=== PATIENT | male | born 1945 | race Caucasian/White ===

== ENCOUNTER 2017-01-10 14:55 | Inpatient (IN) | payer OTHER, MEDICARE ==
--- NOTE | 2016-12-26 11:54 | MH ---
cc: TOYA MIRELES DATE OF ADMISSION: 01/11/2017 ADMITTING DIAGNOSIS: Osteoarthritis of the right knee, patellofemoral disorder right knee and pain of the right knee. HISTORY OF PRESENT ILLNESS The patient is a 71-year-old white male who has experienced pain of his right knee of at least 5 years duration. He had originally noted the onset of a sensation of instability about the knee that was associated with frequent falls. At that time he was evaluated at a [place] facility where he reports he was diagnosed as having an arthritic condition with bone on bone associated with the findings. He was prescribed an offloading brace that he has continued to utilize over the following years that has proven to be beneficial. Without the brace he has residual sensation of instability but as long as he wears the brace he has eliminated the recurrence of any additional falls. He was evaluated by the undersigned physician in October of this past year and at that time he noted a residual sensation of instability with weightbearing activities whenever the brace was not being utilized, he had some degree of pain associated for which he had not required the use of any medication. His x-ray studies at that time revealed obvious degenerative changes about the medial compartment with [id number] apposition and secondary involvement of the patellofemoral articulation. Findings and treatment options were reviewed with the patient, the pros and cons of continuing with conservative management versus operative intervention that would involve total knee arthroplasty were outlined in detail. Emphasis was made regarding the fact that the decision to proceed with surgery would be left entirely to the patient's discretion. The patient readily admitted that he felt his symptoms had progressed to a point in time where he was ready to consider such treatment. The involvement of surgery was outlined in detail for which the patient indicated his full understanding and expressed his desire to proceed accordingly. In compliance with his wishes he is currently being admitted in order that the above be accomplished. PAST MEDICAL HISTORY/HOSPITALIZATIONS/SURGERIES Have included: 1. Cystoscopy for urinary blockage. 2. Left cataract excision. 3. Colonoscopy. MEDICAL ILLNESSES 1. Atrial fibrillation. 2. History of benign brain tumor. MEDICATIONS Current medications: 1. Amlodipine 10 mg daily. 2. Digoxin 0.125 mg daily. 3. Doxazosin 1 mg daily. 4. Finasteride 5 mg daily. 5. Fish oil daily. 6. Lisinopril 20 mg daily. 7. Lovastatin 40 mg daily. 8. Pradaxa 150 mg twice daily. 9. Vitamin D 5000 units daily. ALLERGIES The patient denies any known drug allergies. REVIEW OF SYSTEMS He does wear glasses. Denies headache, seizure or syncope. No sinus congestion or epistaxis. Auditory acuity intact. No tinnitus. No bleeding gums or dysphagia. Denies cough, shortness of breath, upper respiratory infection, pneumonia or tuberculosis. No angina. He is medically managed for hypertension and atrial fibrillation. Appetite is good. Bowel movements are regular. No hepatitis, gallbladder disease, ulcers or hemorrhoids. No urinary tract infection. No kidney stones. No prostate disease. No history of fractures. No psychiatric illness. His remaining review of systems is unremarkable and noncontributory. FAMILY HISTORY The patient reports he has no information in this regard being a foster child. He has been for 25 years. He has one daughter indicated to be in good health. SOCIAL HISTORY The patient completed a high school education. 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 He denies active use of tobacco for at least 8 years but had smoked cigars for approximately 45 years prior to that time. Ethanol consumption on a social basis. PHYSICAL EXAMINATION VITAL SIGNS: Height 5 feet 5 and 1/2 inches. Weight 212 pounds. GENERAL: An alert, oriented and responsive 71-year-old white male sitting quietly upon the examination table with no obvious distress. HEENT: Pupils are equally round and reactive to light. Extraocular movements are full. Sclerae clear. External nares clear. External auditory canals clear. Dental intact. Mucous membranes pink and moist. Pharynx clear. NECK: Supple. Active range of motion without appreciable pain. Carotid pulse palpable bilaterally. Trachea midline. Thyroid without enlargement. LUNGS: Clear to auscultation and percussion. No CVA tenderness. No discomfort throughout the dorsal lumbar spine. HEART: Regular rhythm. No murmur or gallop. ABDOMEN: Abdomen is soft, nontender. Bowel sounds present. RECTAL: Per primary care physician. EXTREMITIES: Right knee no swelling or effusion. Slight medial joint line tenderness. Apprehension and compression sign negative. Limited mobility in the extreme of flexion with mild discomfort at the extreme of motion. 1+ collateral ligamentous instability. Sindy test and drawer sign negative. Pivot shift and Amy sign positive for medial compartment pain. Straight-leg raising unremarkable at 80 degrees. Independent gait with minimal limp associated. NEUROLOGIC: Cranial nerves II-XII grossly intact. IMPRESSION Severe osteoarthritis of the right knee, patellofemoral disorder right knee, pain right knee. PLAN Right total knee arthroplasty. The nature of the planned surgical procedure, the potential complications and risks associated, the expectations of surgery and the consent form have been thoroughly reviewed with the patient in the presence of his daughter and son-in-law prior to admission to the hospital. The patient has indicated his full understanding regarding all of the above and given consent to proceed with treatment as outlined. Medical evaluation and clearance for surgery will be completed by his primary care physician Dr. Anurag Fox. MD MARTHA Mckeon/TLL /11:14 AM /11:28 AM
[~2017-01-10] VITALS: Ht 166.4 cm; Wt 98.3 kg
[~2017-01-10 14:55] MED LIST: 1-ME1LIQ PO; BUPIVACAINE HCL PF 0.25% 30 ML VIAL NB ONE; BUPIVACAINE HCL PF 0.5% 30 ML VIAL NB ONE; DABI150 PO; DIGO0.12 PO; GLUC250C5 PO; HCTZ/LISINOPRIL PO; LISI-593 PO; LOVA40TA PO; TAMS0.4C67 PO
[2017-01-11] MEDS: LACTATED RINGER'S 1000 ML IV SCH (07:00)
[2017-01-11] MEDS ORDERED: AMLO10TA2 PO (07:27)
[2017-01-11] MEDS ORDERED: PRAD150C PO (07:27)
[2017-01-11] MEDS ORDERED: LOVA40TA PO (07:27)
[2017-01-11] MEDS ORDERED: DIGO0.12 PO (07:27)
[2017-01-11] MEDS ORDERED: DOXA1TAB36 PO (07:27)
[2017-01-11] MEDS ORDERED: FINA5TAB2 PO (07:27)
[2017-01-11] MEDS ORDERED: LISI-515 PO (07:27)
[2017-01-11] MEDS ORDERED: VITA500030 CHEW (07:27)
[2017-01-11] MEDS ORDERED: OMEGCAP PO (07:27)
[2017-01-11] MEDS: POVIDONE IODINE 7.5% SCRUB 118 ML BOTTLE TOP SCH (07:30)
[2017-01-11] MEDS: CHLORHEXIDINE GLUCONATE 4% SOLN 120 ML BTL TOP SCH (07:30)
[2017-01-11 07:37] VITALS: BP 180/90; PULSE 69; RESP 18; TEMP 98.7; O2SAT 98
[2017-01-11] MEDS ORDERED: TRANEXAMIC ACID 1 GM PRIOR TO PROCEDURE IV SCH ×2 (07:45)
[2017-01-11] MEDS ORDERED: ceFAZolin 2 GM PREMIX 50 ML ONE (07:52)
[2017-01-11] MEDS ORDERED: SODIUM CHLORID 0.9% 500 ML IV SCH (08:00)
[2017-01-11] MEDS ORDERED: ceFAZolin 2 GM PREMIX 50 ML IV SCH (08:15)
[2017-01-11] MEDS ORDERED: INSULIN HUMAN REGULAR 1,000 UNITS/10 ML VIAL SQ PRN (08:15)
[2017-01-11] MEDS ORDERED: METOPROLOL TARTRATE 25 MG TAB PO PRN (08:15)
[2017-01-11] MEDS ORDERED: MIDAZOLAM HCL 5 MG/5 ML VIAL ONE (08:46)
[2017-01-11] MEDS ORDERED: GENTAMICIN SULFATE 80 MG/2 ML VIAL ONE (09:59)
[2017-01-11] MEDS ORDERED: DEXAMETHASONE SOD PHOS 4 MG/ML VIAL ONE (10:05)
[2017-01-11] MEDS ORDERED: FAMOTIDINE 20 MG/2 ML VIAL ONE (10:05)
[2017-01-11] MEDS ORDERED: ACETAMINOPHEN 1000 MG/100 ML VIAL IV ONE (10:28)
[2017-01-11] MEDS ORDERED: ePHEDrine/NS 50 MG/5 ML SYR IV ONE (11:10)
[2017-01-11] MEDS ORDERED: PROPOFOL 200 MG/20 ML AMP IV ONE (11:10)
[2017-01-11] MEDS ORDERED: ONDANSETRON HCL 4 MG/2 ML VIAL IV PUSH ONE (11:10)
[2017-01-11] MEDS ORDERED: NEOSTIGMINE 3 MG/3 ML SYR IV ONE (11:10)
[2017-01-11] MEDS ORDERED: TRANEXAMIC ACID 1 GM POST-OP IV SCH ×2 (12:00)
[2017-01-11] MEDS ORDERED: TRANEXAMIC ACID INJ 1,000 MG in SODIUM CHLORIDE 0.9% INJ 100 ML IV SCH (12:45)
[2017-01-11] MEDS ORDERED: MAGNESIUM HYDROXIDE SUSP 30 ML CUP PO SCH (12:45)
[2017-01-11] MEDS ORDERED: diphenhydrAMINE HCL 25 MG CAP PO PRN (12:45)
[2017-01-11] MEDS ORDERED: BISACODYL 10 MG SUPP PR PRN (12:45)
[2017-01-11] MEDS ORDERED: ZOLPIDEM TARTRATE 5 MG TAB PO PRN (12:45)
[2017-01-11] MEDS ORDERED: DOCUSATE SODIUM 100 MG CAP PO PRN (12:45)
[2017-01-11] MEDS ORDERED: SODIUM CHLORIDE 0.9% FLUSH 5 ML FLUSH IVF PRN (12:45)
[2017-01-11] MEDS ORDERED: NALOXONE HCL 0.4 MG/ML AMP IV PRN (12:45)
[2017-01-11] MEDS ORDERED: ACETAMINOPHEN/HYDROcodone 325 MG/5 MG TAB PO PRN (12:45)
[2017-01-11] MEDS ORDERED: MORPHINE SULFATE 30 MG/30 ML PCA IV SCH (12:45)
[2017-01-11] MEDS ORDERED: Post-op Orders (for Pharmacy) MISC XX ONE (12:45)
[2017-01-11] MEDS ORDERED: MISCELLANEOUS PHARMACY INFORMATION XX ONE (12:45)
[2017-01-11] MEDS ORDERED: ACETAMINOPHEN 325 MG TAB PO PRN (12:45)
[2017-01-11] MEDS ORDERED: ONDANSETRON HCL 4 MG/2 ML VIAL IVP PRN (12:45)
[2017-01-11] MEDS ORDERED: PROMETHAZINE INJ 25 MG/ML VIAL IM PRN (12:45)
[2017-01-11] MEDS ORDERED: *morphine SULFATE 8 MG/ML PERIprocedure ONLY ONE (12:53)
[2017-01-11] MEDS ORDERED: DO NOT ADM ANY ANTICOAGULANT DRUGS XX PRN (13:00)
[2017-01-11] MEDS ORDERED: fentaNYL CITRATE 250 MCG/5 ML AMP ONE (13:10)
[2017-01-11] MEDS: DEXT 5%-NACL 0.45% 1000 ML INJ 1,000 ML IV SCH (14:00)
[2017-01-11] MEDS: PCA - TOTAL MG MORPHINE DELIVERED PER SHIFT SCH ×2 (14:00→22:00)
--- NOTE | 2017-01-11 14:37 | RADRPT ---
EXAM DATE/TIME: 01/11/2017 13:57 [facility] COMPARISON: No previous studies available for comparison. INDICATIONS : Post op right knee replacement. MEDICAL HISTORY : None. SURGICAL HISTORY : None. ENCOUNTER: Initial ACUITY: 1 day PAIN SCORE: 2/10 LOCATION: Right knee. FINDINGS: AP and crosstable lateral views of the right knee were obtained and demonstrate that the patient is s tatus post arthroplasty. The femoral and tibial components are intact and in normal alignment. There are postoperative changes involving the patella. Surgical drains are noted. There is mild soft tissue swelling. CONCLUSION: Status post arthroplasty. Jose Armando Yao MD on January 11, 2017 at 14:36 Board Certified Radiologist. This report was verified electronically.
[2017-01-11] MEDS ORDERED: ENALAPRILAT 1.25 MG/ML VIAL IV PUSH PRN (16:15)
--- NOTE | 2017-01-11 17:19 | PD.CONS ---
HPI Service [facility] Consult Requested By Dr. Ford Reason for Consult Medical management Primary Care Physician Non-Staff Diagnoses: History of Present Illness The patient is a 71-year-old male with past medical history of atrial fibrillation, hypertension, hyperlipidemia and osteoarthritis who is presenting to the hospital for elective right knee replacement. The patient says that he has had problems with his right knee for 5-6 years. He said he was falling down a lot because of the pain and he went to [facility] and was given a brace. He said the knee brace helped him immensely and he didn't fall as much. He has been ambulating without a walker or a cane. The patient's pain in his right knee got more and more severe and he started following up with an orthopedic surgeon. He said he did not try any steroid injections or physical therapy. He has not been taking any pain medications at home. He says over the past few months he has been falling down because of the instability and pain that he thought it was unsafe and something needed to be done. He tolerated the procedure well. He says he has no other joints affected by arthritis. He denies any constipation or diarrhea. He denies any fever or rash. Review of Systems Except as stated in HPI: all other systems reviewed are Neg Past Family Social History Allergies: Coded Allergies: *MDRO Multi-Drug Resistant Organism (Verified Adverse Reaction, Unknown, ) MRSA (leg wound) - 07/01/06 Past Medical History Hypertension Hyperlipidemia Atrial fibrillation Osteoarthritis Past Surgical History The patient denies surgical history. Active Ordered Medications Current Medications Medications (Trade) Dose Ordered Sig/[facility] Route Start Time Stop Time Status Last Admin Tranexamic Acid 1000 mg/Sodium Chloride 110 ml @ 220 mls/hr ONCE IV 01/11/17 12:00 01/11/17 18:00 01/11/17 12:45 Lactated Ringer's 1,000 ml @ 30 mls/hr Q24H IV 01/11/17 08:00 01/11/17 07:00 (NS 500 ml Inj) 500 ml @ 30 mls/hr [id number] IV 01/11/17 08:00 01/12/17 07:59 (Betadine 7.5% Scrub) 1 applic ONCE TOP 01/11/17 08:15 01/14/17 08:14 01/11/17 07:30 (Hibiclens 4% Top Soln) 1 applic ONCE TOP 01/11/17 08:15 01/14/17 08:14 01/11/17 07:30 (NS Flush) 2 ml UNSCH PRN IVF 01/11/17 12:45 IV Flush 2 ml 2 ml BID IVF 01/11/17 21:00 (Ancef Inj/NS Inj) 100 ml @ 200 mls/hr Q6H IV 01/11/17 13:00 01/12/17 01:29 01/11/17 14:30 (Xarelto) 10 mg Q24H PO 01/12/17 11:30 ([place]eredo 5-325 Mg) 1 tab Q4H PRN PO 01/11/17 12:45 (Ceredo 5-325 Mg) 2 tab Q4H PRN PO 01/11/17 12:45 (Tylenol) 650 mg Q6H PRN PO 01/11/17 12:45 (Zofran Inj) 4 mg Q6H PRN IVP 01/11/17 12:45 (Ambien) 5 mg HS PRN PO 01/11/17 12:45 (Dulcolax Supp) 10 mg DAILY PRN UT 01/11/17 12:45 (Milk Of Magnesia Liq) 30 ml DAILY PRN PO 01/11/17 12:45 (Narcan Inj) 0.4 mg UNSCH PRN IV 01/11/17 12:45 01/13/17 12:44 (Benadryl) 25 mg Q6H PRN PO 01/11/17 12:45 01/13/17 12:44 (Morphine 1 Mg/ ml TWISTER HAND) 30 mg UNSCH IV 01/11/17 12:45 01/13/17 12:44 01/11/17 14:33 TWISTER HAND Dosage Infused (Pha) 1 1 Q8HR .XX 01/11/17 14:00 01/13/17 13:59 (D5W-1/2 NS 1000 ml Inj) 1,000 ml @ 125 mls/hr Q8H IV 01/11/17 12:39 01/11/17 14:00 (Phenergan Inj) 25 mg Q6H PRN IM 01/11/17 12:45 Miscellaneous Information ALL NURSING DEPARTME... UNSCH PRN XX 01/11/17 13:00 01/12/17 12:59 (Norvasc) 10 mg DAILY PO 01/12/17 09:00 (Lanoxin) 0.125 mg DAILY PO 01/12/17 09:00 (Cardura) 1 mg DAILY PO 01/12/17 09:00 (Proscar) 5 mg HS PO 01/11/17 21:00 (Prinivil) 20 mg DAILY PO 01/12/17 09:00 (Pravachol) 40 mg HS PO 01/11/17 21:00 (Colace) 100 mg BID PO 01/11/17 21:00 (Senokot) 17.2 mg DAILY PO 01/12/17 09:00 (Vasotec Inj) 1.25 mg Q6H PRN IV PUSH 01/11/17 16:15 Family History The patient said he was a foster child. Social History The patient does not smoke. He drinks 3-4 big glasses of scotch daily. Physical Exam Vital Signs Vital Signs Date Time Temp Pulse Resp B/P Pulse Ox O2 Delivery O2 Flow Rate FiO2 01/11/17 14:38 15 01/11/17 14:33 15 01/11/17 14:00 97.6 67 15 125/68 96 Nasal Cannula 3 01/11/17 13:45 69 14 132/70 96 Nasal Cannula 3 01/11/17 13:30 70 13 140/76 95 Nasal Cannula 3 01/11/17 13:15 71 13 141/79 94 Nasal Cannula 3 01/11/17 13:00 72 13 156/85 94 Nasal Cannula 3 01/11/17 12:45 72 12 157/88 98 Nasal Cannula 4 01/11/17 12:35 97.9 63 12 157/85 97 Nasal Cannula 4 01/11/17 07:37 98.7 69 18 180/90 98 Physical Exam GENERAL: This is a well-nourished, well-developed patient, in no apparent distress. SKIN: No rashes, ecchymoses or lesions. Cool and dry. HEAD: Atraumatic. Normocephalic. No temporal or scalp tenderness. EYES: Pupils equal round and reactive. Extraocular motions intact. No scleral icterus. No injection or drainage. ENT: Nose without bleeding, purulent drainage or septal hematoma. Throat without erythema, tonsillar hypertrophy or exudate. Uvula midline. Airway patent. NECK: Trachea midline. No JVD or lymphadenopathy. Supple, nontender, no meningeal signs. CARDIOVASCULAR: Irregularly irregular without murmurs, gallops, or rubs. RESPIRATORY: Clear to auscultation. Breath sounds equal bilaterally. No wheezes , rales, or rhonchi. GASTROINTESTINAL: Abdomen soft, non-tender, nondistended. No hepato-splenomegaly , or palpable masses. No guarding. MUSCULOSKELETAL: Right knee in immobilizer. Tender to palpation. Able to wiggle toes. No edema in the left lower extremity. NEUROLOGICAL: Awake and alert. Cranial nerves II through XII intact. Motor and sensory grossly within normal limits. Five out of 5 muscle strength in all muscle groups. Normal speech. PSYCH: Mood and affect appropriate. Laboratory Laboratory Tests Test 01/11/17 07:10 Blood Type A POSITIVE Antibody Screen NEGATIVE Antigen Identification A1 LECTIN - POSITIVE Blood Bank Comment Imaging Last Impressions Knee X-Ray 01/11/17 1239 Signed Impressions: Service Date/Time: Wednesday, January 11, 2017 13:57 - CONCLUSION: Status post arthroplasty. Jose Armando Yao MD Assessment and Plan Assessment and Plan Severe osteoarthritis of right knee/ patellofemoral syndrome right knee The patient is status post right knee arthroplasty 01/11/17. He tolerated the procedure well. - Anticoagulation, wound care and weightbearing per orthopedic surgery. - Physical therapy. - Incentive spirometry. - Pain control with a bowel regimen. - check basic labs in AM. Atrial fibrillation Heart rate controlled at this time. - Continue to hold Pradaxa. Resume anticoagulation when okay with orthopedic surgery. - Continue digoxin. Hypertension Blood pressure well controlled at this time. - Resume home medications. - Vasotec as needed. Alcohol use The patient endorses 3-4 glasses of scotch daily. He denies any history of withdrawal. - The patient was told to try to cut down on his alcohol intake. - CIWA protocol. PPx: Per orthopedic surgery. Discussed Condition With Pt. Jose Armando Hannah DO Jan 11, 2017 17:19
[2017-01-11] MEDS ORDERED: LORazepam 2 MG TAB PO PRN (17:30)
[2017-01-11] MEDS ORDERED: LORazepam 1 MG TAB PO PRN (17:30)
[2017-01-11] MEDS ORDERED: LORazepam 2 MG/ML VIAL IV PUSH PRN ×4 (17:30)
[2017-01-11] MEDS ORDERED: FLUMAZENIL 0.5 MG/5 ML VIAL IV PUSH PRN (17:30)
[2017-01-11 18:00] VITALS: BP 135/76; PULSE 74; RESP 18; TEMP 96; O2SAT 97
[2017-01-11 19:32] VITALS: BP 148/78; PULSE 80; RESP 18; TEMP 97; O2SAT 96
[2017-01-11] MEDS: SODIUM CHLORIDE 0.9% FLUSH 5 ML FLUSH IVF SCH (21:00)
[2017-01-11 22:12] VITALS: O2SAT 96
[2017-01-11] MEDS: PRAVASTATIN SOD 40 MG TAB PO SCH (22:16)
[2017-01-11] MEDS: DOCUSATE SODIUM 100 MG CAP PO SCH (22:16)
[2017-01-11] MEDS: FINASTERIDE 5 MG TAB PO SCH (22:18)
[2017-01-12] VITALS (7 sets, daily range): BP systolic 132–176; BP diastolic 72–96; PULSE 64–78; RESP 15–18; TEMP 96.7–97.3; O2SAT 92–98
[2017-01-12 05:08] LABS: HEMATOCRIT 36.3 % (39.0-51.0); MEAN CELL VOLUME 91.1 FL (80.0-100.0); MEAN CORPUSCULAR HEMOGLOBIN 30.7 PG (27.0-34.0); MEAN CORPUSCULAR HGB CONC 33.7 % (32.0-36.0); PLATELET COUNT 142 TH/MM3 (150-450); RED BLOOD COUNT 3.99 MIL/MM3 (4.50-5.90); RED CELL DISTRIBUTION WIDTH 14.1 % (11.6-17.2); REVIEW FLAG FINAL; WHITE BLOOD COUNT 11.8 TH/MM3 (4.0-11.0)
[2017-01-12 05:36] LABS: BICARBONATE 24.4 MEQ/L (21.0-32.0)
[2017-01-12] MEDS ORDERED: HYDR-3516 PO (06:44)
--- NOTE | 2017-01-12 06:46 | HHI.FF ---
Face to Face Verification Diagnosis: (1) DJD (degenerative joint disease) of knee Physical Therapy Gait training Knee: Total knee, Protocol: Right, Full weight bearing Right LE Weight Bearing: WB as tolerated Right LE Range of Motion: Active ROM Nursing Dressing Changes: Daily dressing change I have seen patient Juan Langston on 01/12/17. My clinical findings support the need for the requested home health care services because: Limited ability to care for self High risk of falls I certify that my clinical findings support that this patient is homebound because: Post-op weakness Unsteady gait/balance Unsafe to leave home unassisted Derek Ford MD Jan 12, 2017 06:45
[2017-01-12] MEDS ORDERED: WALKER WHEELS/F1 MIS (06:47)
[2017-01-12] MEDS: LACTATED RINGER'S 1000 ML IV SCH (08:00)
[2017-01-12] MEDS: SODIUM CHLORIDE 0.9% FLUSH 5 ML FLUSH IVF SCH ×2 (09:00→20:59)
[2017-01-12] MEDS ORDERED: SENNOSIDES 8.6 MG TAB PO SCH (09:00)
[2017-01-12] MEDS ORDERED: NON-FORMULARY DRUG (Fish Oil-Cholecalciferol (Omega-3 Fish Oil/Vitamin) 1 CAP) PO SCH (09:00)
[2017-01-12] MEDS: MULTIVITAMIN TAB PO SCH (10:11)
[2017-01-12] MEDS: DOXAZOSIN MESYLATE 1 MG TAB PO SCH (10:11)
[2017-01-12] MEDS: LISINOPRIL 20 MG TAB PO SCH (10:12)
[2017-01-12] MEDS: DIGOXIN 0.125 MG TAB PO SCH (10:12)
[2017-01-12] MEDS: DOCUSATE SODIUM 100 MG CAP PO SCH ×2 (10:13→21:00)
[2017-01-12] MEDS: THIAMINE HCL 100 MG TAB PO SCH (10:13)
[2017-01-12] MEDS: FOLIC ACID 1 MG TAB PO SCH (10:13)
[2017-01-12] MEDS: DEXT 5%-NACL 0.45% 1000 ML INJ 1,000 ML IV SCH ×3 (10:16→21:00)
[2017-01-12] MEDS: RIVAROXABAN 10 MG TAB PO SCH (11:30)
[2017-01-12] MEDS: MAGNESIUM HYDROXIDE SUSP 30 ML CUP PO SCH ×2 (11:30→21:00)
[2017-01-12] MEDS: PCA - TOTAL MG MORPHINE DELIVERED PER SHIFT SCH ×2 (14:00→21:00)
[2017-01-12] MEDS: ACETAMINOPHEN/HYDROcodone 325 MG/5 MG TAB PO PRN (17:43)
--- NOTE | 2017-01-12 18:31 | MP ---
cc: TOYA FORD M.D. DATE OF SURGERY: 01/11/2017. PREOPERATIVE DIAGNOSIS: Osteoarthritis of the right knee with patellofemoral disorder and pain of the right knee. POSTOPERATIVE DIAGNOSIS: Osteoarthritis of the right knee with patellofemoral disorder and pain of the right knee. OPERATIVE PROCEDURE PERFORMED: Right total knee arthroplasty. SURGEON: Toya Ford MD. ANESTHESIA: General endotracheal INDICATIONS FOR THE PROCEDURE: A 71-year-old white male with pain of the right knee of five years duration. He had originally noted the onset of a sensation of instability that was associated with frequent falls. He was initially evaluated [facility] a [facility] and reports he was diagnosed as having an arthritic condition with [id number] associated with the above findings. He was prescribed an offloading brace that he continued utilize over the following years that had proven to be beneficial. Without the brace, he had residual sensation of instability but as long as he wore the brace, he had eliminated the recurrence of any additional falls. He was evaluated by the undersigned physician in October of this past year and at that time he had a residual sensation of instability with weightbearing activities whenever the brace was not being utilized. He had some degree of pain associated for which he required the use for which he was not using any specific medication. His x-ray studies revealed obvious degenerative changes about the medial compartment with [id number] apposition and secondary involvement of the patellofemoral articulation. Findings and treatment options were reviewed. The pros and cons of continuing with conservative management versus operative intervention that would involve a total knee arthroplasty were outlined in detail. Emphasis was made regarding the fact that the decision to proceed with surgery would be left entirely to the patient's discretion. He readily admitted that he felt his symptoms had progressed to that point in time where he was ready to consider such treatment, and in compliance with his wishes he is currently been admitted in order that total knee arthroplasty be completed. DESCRIPTION OF THE PROCEDURE IN DETAIL / FORMAT: Following the induction of satisfactory general anesthesia by endotracheal intubation as completed per the department of anesthesia, a tourniquet was established around the proximal portion of the right lower extremity. The extremity proper was isolated with a U drape thereafter being prepped with Betadine solution and draped into a sterile field in the routine manner. Prior to initiation of the actual procedure, the standard time-out protocol was completed. All parameters were appropriately addressed and confirmed by operating room personnel. The extremity was elevated for approximately one minute and the tourniquet thus inflated to 250 mmHg pressure. A sharp skin incision was initiated midline over the anterior aspect of the knee and developed through underlying subcutaneous tissue with hemostasis maintained by electrocautery. By deepening dissection, the anterior capsule was exposed, a medial capsulotomy completed and the patella subluxed in a lateral orientation. Examination of the joint space revealed severe degenerative changes throughout the medial compartment extending into the lateral compartment where there was significant erosion of articular cartilage from the femoral condyle, secondary involvement of the patellofemoral articulation, absence of the anterior cruciate ligament. Medial and lateral meniscus structures were sharply excised. The articular surface of the patella was resected with power saw and the three holed guide was utilized for establishing post holes. A centering hole was placed in the distal aspect of the femur allowing positioning of the intramedullary guide. The distal femoral cutting jig was attached and the distal femur resected. AP measurement noted 67.5 mm sizing to be appropriate. The matching cutting block was positioned. Anterior, posterior and chamfer cuts were completed. The tibial plateau was thereafter subluxed in an anterior orientation allowing positioning of the extramedullary guide. The tibial plateau was resected and measured with 79 mm sizing determined to be satisfactory. A trial reduction followed utilizing a 67.5 mm anatomic femoral component, a 79 mm tibial base with both 10 and 12 mm bearing inserts trialed. The 12 mm thickness was determined to be the more favorable fit. The knee was readily brought to full extension. There was no laxity to varus or valgus stress at both 0 and 90 degrees flexed posture. Orientation was confirmed as being appropriate with measurement of the pelvic guide through the mechanical axis of the knee. A trial reduction followed utilizing a 31 mm standard patellar button. Once again good tracking was demonstrated with no tendency toward subluxation. All trial components being removed, the remaining portion of the proximal tibia was prepared for insertion of the permanent component. The joint space was thoroughly lavaged with pulsating antibiotic solution. Hemostasis maintained by electrocautery. An autogenous bone plug was inserted into the distal femoral guide hole and thereafter a preparation of cobalt bone cement was utilized in inserting knee components in a sequential fashion which included a 79 mm fixed cruciate tibial plate to which 12 mm Vanguard tibial bearing insert was secured with locking shin. The 67.5 mm Vanguard femoral component was firmly seated onto the distal femur excess cement being removed. The knee was brought to full extension and thereafter the 31 mm standard three post patellar button was attached and maintained in place with patellar clamp while cement hardening was completed. Final range of motion assessment noted good tracking and stability throughout the knee. Irrigation was repeated with hemostasis maintained. Autovac drain tubes were inserted through superior stab wounds. The capsule was repaired with #0 Vicryl suture. The remaining portion of the wound was closed in layers in the routine manner, skin margins being reapproximated with a running subcuticular 3-0 Vicryl suture over which Steri-Strips were applied. Xeroform gauze and a bulky dry sterile dressing placed. The tourniquet had been deflated after 56 minutes of tourniquet time, the extremity being supported in a canvas knee splint, anesthesia was discontinued and he was thereafter transferred to a hospital bed and returned to the recovery room in satisfactory condition having tolerated his operative procedure well. Estimated blood loss was approximately 100 mL as determined per anesthesia. All implants were of the Biomet director loss prevention. MD MARTHA Mckeon/SAVANNAH /12:33 PM /6:17 PM
[2017-01-12] MEDS: PRAVASTATIN SOD 40 MG TAB PO SCH (21:00)
[2017-01-12] MEDS: FINASTERIDE 5 MG TAB PO SCH (21:00)
[2017-01-13] VITALS (9 sets, daily range): BP systolic 141–175; BP diastolic 70–82; PULSE 56–94; RESP 16–20; TEMP 95.8–98.2; O2SAT 93–96
[2017-01-13] MEDS: PCA - TOTAL MG MORPHINE DELIVERED PER SHIFT SCH (06:00)
[2017-01-13] MEDS: LACTATED RINGER'S 1000 ML IV SCH (08:00)
[2017-01-13] MEDS: CHLORHEXIDINE GLUCONATE 4% SOLN 120 ML BTL TOP SCH (08:15)
[2017-01-13] MEDS: POVIDONE IODINE 7.5% SCRUB 118 ML BOTTLE TOP SCH (08:15)
[2017-01-13] MEDS: LISINOPRIL 20 MG TAB PO SCH (08:56)
[2017-01-13] MEDS: THIAMINE HCL 100 MG TAB PO SCH (08:56)
[2017-01-13] MEDS: FOLIC ACID 1 MG TAB PO SCH (08:57)
[2017-01-13] MEDS: DOCUSATE SODIUM 100 MG CAP PO SCH ×2 (08:57→21:32)
[2017-01-13] MEDS: MULTIVITAMIN TAB PO SCH (08:57)
[2017-01-13] MEDS: ACETAMINOPHEN/HYDROcodone 325 MG/5 MG TAB PO PRN ×3 (08:57→17:49)
[2017-01-13] MEDS: DOXAZOSIN MESYLATE 1 MG TAB PO SCH (08:57)
[2017-01-13] MEDS: DIGOXIN 0.125 MG TAB PO SCH (08:57)
[2017-01-13] MEDS: SODIUM CHLORIDE 0.9% FLUSH 5 ML FLUSH IVF SCH ×2 (09:00→21:32)
[2017-01-13] MEDS: MAGNESIUM HYDROXIDE SUSP 30 ML CUP PO SCH ×2 (09:00→21:00)
[2017-01-13] MEDS: DEXT 5%-NACL 0.45% 1000 ML INJ 1,000 ML IV SCH (12:39)
[2017-01-13] MEDS: RIVAROXABAN 10 MG TAB PO SCH (12:40)
--- NOTE | 2017-01-13 14:00 | HHI.PR ---
Subjective Remarks The patient was resting in bed comfortably. He said he has been tolerating a diet. His pain is a 5 out of 10 in severity. He has not had a bowel movement since Monday. No other acute complaints. Hoping to go home tomorrow. Objective Vitals Vital Signs Date Time Temp Pulse Resp B/P Pulse Ox O2 Delivery O2 Flow Rate FiO2 01/13/17 13:01 96 Nasal Cannula 2.00 01/13/17 08:00 95.9 56 17 175/81 95 01/13/17 04:00 97.5 71 16 157/82 93 01/13/17 00:00 97.0 66 17 162/72 94 01/12/17 20:45 95 01/12/17 19:15 97.3 78 15 132/75 92 01/12/17 19:15 Nasal Cannula 2.00 01/12/17 16:10 96.7 76 17 176/96 98 01/12/17 14:00 15 I/O 01/12/17 01/12/17 01/12/17 01/13/17 01/13/17 01/13/17 07:00 15:00 23:00 07:00 15:00 23:00 Intake Total 966 ml 2210 ml 240 ml 240 ml Output Total 1940 ml 110 ml 450 ml 460 ml Balance -974 ml 2100 ml -210 ml -220 ml Intake Oral 1200 ml 240 ml 240 ml IV Total 966 ml 1010 ml Output Urine Total 1700 ml 400 ml 400 ml Drainage Total 240 ml 110 ml 50 ml 60 ml # Voids 4 # Bowel Movements 0 0 0 Result Diagram: 01/12/17 0413 01/12/17 0413 Imaging Last Impressions Knee X-Ray 01/11/17 1239 Signed Impressions: Service Date/Time: Wednesday, January 11, 2017 13:57 - CONCLUSION: Status post arthroplasty. Jose Armando Yao MD Objective Remarks GENERAL: This is a well-nourished, well-developed patient, in no apparent distress. SKIN: No rashes, ecchymoses or lesions. Cool and dry. HEAD: Atraumatic. Normocephalic. No temporal or scalp tenderness. EYES: Pupils equal round and reactive. Extraocular motions intact. No scleral icterus. No injection or drainage. ENT: Nose without bleeding, purulent drainage or septal hematoma. Throat without erythema, tonsillar hypertrophy or exudate. Uvula midline. Airway patent. NECK: Trachea midline. No JVD or lymphadenopathy. Supple, nontender, no meningeal signs. CARDIOVASCULAR: Irregularly irregular without murmurs, gallops, or rubs. RESPIRATORY: Clear to auscultation. Breath sounds equal bilaterally. No wheezes , rales, or rhonchi. GASTROINTESTINAL: Abdomen soft, non-tender, nondistended. No hepato-splenomegaly , or palpable masses. No guarding. MUSCULOSKELETAL: Right knee with bandage in place with some blood seeping through. Tender to palpation. Able to wiggle toes. No edema in the left lower extremity. NEUROLOGICAL: Awake and alert. Cranial nerves II through XII intact. Motor and sensory grossly within normal limits. Five out of 5 muscle strength in all muscle groups. Normal speech. PSYCH: Mood and affect appropriate. Procedures Right knee arthroplasty Medications and IVs Current Medications Medications (Trade) Dose Ordered Sig/Jacquelyn Route Start Time Stop Time Status Last Admin (Lr 1000 ml Inj) 1,000 ml @ 30 mls/hr Q24H IV 01/11/17 08:00 01/11/17 07:00 (Betadine 7.5% Scrub) 1 applic ONCE TOP 01/11/17 08:15 01/14/17 08:14 01/11/17 07:30 (Hibiclens 4% Top Soln) 1 applic ONCE TOP 01/11/17 08:15 01/14/17 08:14 01/11/17 07:30 (NS Flush) 2 ml UNSCH PRN IVF 01/11/17 12:45 (NS Flush) 2 ml BID IVF 01/11/17 21:00 01/13/17 09:00 (Xarelto) 10 mg Q24H PO 01/12/17 11:30 01/13/17 12:40 (Cocoa 5-325 Mg) 1 tab Q4H PRN PO 01/11/17 12:45 01/13/17 12:43 (Cocoa 5-325 Mg) 2 tab Q4H PRN PO 01/11/17 12:45 (Tylenol) 650 mg Q6H PRN PO 01/11/17 12:45 (Zofran Inj) 4 mg Q6H PRN IVP 01/11/17 12:45 (Ambien) 5 mg HS PRN PO 01/11/17 12:45 (Dulcolax Supp) 10 mg DAILY PRN UT 01/11/17 12:45 [employer] Dosage Infused (Pha) 1 Q8HR .XX 01/11/17 14:00 01/13/17 13:59 01/12/17 14:00 (Phenergan Inj) 25 mg Q6H PRN IM 01/11/17 12:45 (Norvasc) 10 mg DAILY PO 01/12/17 09:00 01/13/17 08:57 (Lanoxin) 0.125 mg DAILY PO 01/12/17 09:00 01/13/17 08:57 (Cardura) 1 mg DAILY PO 01/12/17 09:00 01/13/17 08:57 (Proscar) 5 mg HS PO 01/11/17 21:00 01/12/17 21:00 (Prinivil) 20 mg DAILY PO 01/12/17 09:00 01/13/17 08:56 (Pravachol) 40 mg HS PO 01/11/17 21:00 01/12/17 21:00 (Colace) 100 mg BID PO 01/11/17 21:00 01/13/17 08:57 (Vasotec Inj) 1.25 mg Q6H PRN IV PUSH 01/11/17 16:15 (Romazicon Inj) 0.2 mg Q1M PRN IV PUSH 01/11/17 17:30 (Ativan) 1 mg Q4H PRN PO 01/11/17 17:30 (Ativan Inj) 1 mg Q4H PRN IV PUSH 01/11/17 17:30 (Ativan) 2 mg Q2H PRN PO 01/11/17 17:30 (Ativan Inj) 2 mg Q2H PRN IV PUSH 01/11/17 17:30 (Ativan Inj) 2 mg Q1H PRN IV PUSH 01/11/17 17:30 (Ativan Inj) 2 mg Q15M PRN IV PUSH 01/11/17 17:30 (Theragran) 1 tab DAILY PO 01/12/17 09:00 01/13/17 08:57 (Folate) 1 mg DAILY PO 01/12/17 09:00 01/13/17 08:57 (Vitamin B1) 100 mg DAILY PO 01/12/17 09:00 01/13/17 08:56 (Milk Of Magnoscar Liq) 30 ml BID PO 01/12/17 11:30 01/13/17 09:00 (Senokot) 17.2 mg HS PO 01/13/17 21:00 A/P Assessment and Plan Severe osteoarthritis of right knee/ patellofemoral syndrome right knee The patient is status post right knee arthroplasty 01/11/17. He tolerated the procedure well. - Anticoagulation, wound care and weightbearing per orthopedic surgery. - Physical therapy. Anticipate d/c home with [facility] in 1-2 days. - Incentive spirometry. - Pain control with a bowel regimen. Lactulose ordered 01/13. Atrial fibrillation Heart rate controlled at this time. - Continue to hold Pradaxa. Resume anticoagulation when okay with orthopedic surgery. Xarelto has been ordered. - Continue digoxin. Hypertension Blood pressure has been elevated. Likely exacerbated by pain. - Resume home medications. Increase as needed. - pain control. - Vasotec as needed. Alcohol use The patient endorses 3-4 glasses of scotch daily. He denies any history of withdrawal. The pt does not appear to be withdrawing at this time. - The patient was told to try to cut down on his alcohol intake. - CIWA protocol. PPx: Per orthopedic surgery. Discharge Planning Anticipate d/c with [facility] in 1-2 days per primary. Jose Armando Hannah DO Jan 13, 2017 13:59
[2017-01-13] MEDS ORDERED: LACTULOSE SYRUP 20 GM/30 ML CUP PO ONE (15:00)
[2017-01-13] MEDS ORDERED: SENNOSIDES 8.6 MG TAB PO SCH (21:00)
[2017-01-13] MEDS: FINASTERIDE 5 MG TAB PO SCH (21:32)
[2017-01-13] MEDS: PRAVASTATIN SOD 40 MG TAB PO SCH (21:32)
[2017-01-14 00:15] VITALS: BP 174/79; PULSE 65; RESP 19; TEMP 98.5; O2SAT 95
[2017-01-14] MEDS: ACETAMINOPHEN/HYDROcodone 325 MG/5 MG TAB PO PRN ×2 (00:33→09:41)
[2017-01-14 04:32] VITALS: BP 162/88; PULSE 70; RESP 18; TEMP 98.5; O2SAT 95
[2017-01-14 07:14] LABS: HEMATOCRIT 31.9 % (39.0-51.0); MEAN CELL VOLUME 91.3 FL (80.0-100.0); MEAN CORPUSCULAR HEMOGLOBIN 31.2 PG (27.0-34.0); MEAN CORPUSCULAR HGB CONC 34.2 % (32.0-36.0); PLATELET COUNT 138 TH/MM3 (150-450); RED BLOOD COUNT 3.49 MIL/MM3 (4.50-5.90); RED CELL DISTRIBUTION WIDTH 13.9 % (11.6-17.2); REVIEW FLAG FINAL; WHITE BLOOD COUNT 9.7 TH/MM3 (4.0-11.0)
[2017-01-14] MEDS: LACTATED RINGER'S 1000 ML IV SCH (07:35)
[2017-01-14 08:49] VITALS: BP 170/81; PULSE 60; RESP 18; TEMP 98.9; O2SAT 93
[2017-01-14] MEDS: DOCUSATE SODIUM 100 MG CAP PO SCH (09:00)
[2017-01-14] MEDS: MAGNESIUM HYDROXIDE SUSP 30 ML CUP PO SCH (09:00)
[2017-01-14] MEDS: MULTIVITAMIN TAB PO SCH (09:38)
[2017-01-14] MEDS: LISINOPRIL 20 MG TAB PO SCH (09:39)
[2017-01-14] MEDS: DIGOXIN 0.125 MG TAB PO SCH (09:39)
[2017-01-14] MEDS: DOXAZOSIN MESYLATE 1 MG TAB PO SCH (09:39)
[2017-01-14] MEDS: THIAMINE HCL 100 MG TAB PO SCH (09:39)
[2017-01-14] MEDS: FOLIC ACID 1 MG TAB PO SCH (09:39)
[2017-01-14] MEDS: SODIUM CHLORIDE 0.9% FLUSH 5 ML FLUSH IVF SCH (09:42)
[2017-01-14 10:58] VITALS: BP 145/69
[2017-01-14] MEDS: RIVAROXABAN 10 MG TAB PO SCH (11:00)
--- NOTE | 2017-01-15 21:37 | MD ---
cc: TOYA MIRELES GARY ADMISSION DATE: 01/11/2017 DISCHARGE DATE: 01/14/2017 ADMISSION DIAGNOSIS Osteoarthritis of the right knee, patellofemoral disorder right knee and pain of the right knee. DISCHARGE DIAGNOSIS Osteoarthritis of the right knee, patellofemoral disorder right knee and pain of the right knee. HISTORY A 71-year-old white male who experienced at least a 5-year history of pain involving his right knee. He had noted the gradual onset of symptoms as well as a sensation of instability associated with frequent falls. He had undergone previous evaluation at a [place] were he reports he was diagnosed as having an arthritic condition with [id number] associated. He was prescribed an offloading brace that he continued utilize over the following years that had proven to be beneficial. Without the brace he had residual sensation of instability but with the brace he was able to eliminate any recurrent falls. He was evaluated by the undersigned physician in October of this past year and at that time he noted residual instability with weightbearing activities with associated pain. His x-ray studies revealed obvious degenerative changes about the medial compartment with [id number] apposition and secondary involvement of the patellofemoral articulation. Findings and treatment options were reviewed with the patient at that time. The pros and cons of continuing with conservative management versus operative intervention that would involve a total knee arthroplasty were outlined in detail. Emphasis was made regarding the fact that the decision to proceed with surgery would be left entirely to the patient's discretion. The patient readily admitted that he felt that his symptoms had progressed to that point in time where he is ready to consider such treatment and in compliance with his wishes he was scheduled for admission at this time in order that total knee replacement be accomplished. His physical examination the time of admission revealed no swelling or effusion about the right knee. There was medial joint line tenderness. Apprehension and compression sign were negative. Limited mobility of the extreme of flexion with pain associated, 1+ collateral ligamentous instability. Sindy test and drawer sign negative. Pivot shift and Amy sign positive for medial compartment pain. Straight-leg raising unremarkable to 80 degrees. Independent gait with minimal limp associated. HOSPITAL COURSE Prior to admission to the hospital the patient underwent medical evaluation and clearance for surgery as completed by his primary care physician Dr. Anurag Fox. He was taken to the operating room on January 11, 2017 and on that date underwent a right total knee arthroplasty completed in an uncomplicated manner. He was noted to have tolerated the operative procedure well. Postoperative course stable thereafter. Hemoglobin/hematocrit assessment postoperatively was 12.2 and 36.3, respectively. The patient was progressively mobilized under guidance of physical therapy being permitted weightbearing to tolerance about the right lower extremity. Follow up examination of the surgical wound noted to be intact, healing favorably, no evidence of infection. Medical followup per the hospitalist service. DVT prophylaxis initiated. media services coordinator consulted to assist with discharge planning. The patient did demonstrate some residual difficulty with ambulatory activities. Based upon his preoperative level of weakness with a quad musculature for which he was encouraged to continue with use of his knee immobilizer for additional support as part of his continued rehabilitation. He was otherwise scheduled for discharge home on the third postoperative day pending medical clearance at which time he was making slow but steady progress with regards to his rehab program. He was scheduled to be seen in office followup in approximately 4 weeks. His condition at the time of discharge stable. Prognosis favorable. DISCHARGE MEDICATIONS 1. Hydrocodone 5/325 #60. 2. The patient was also resume Pradaxa which he had taken preoperatively as his continued anticoagulation therapy. MD MARTHA Mckeon/KK /6:51 AM /9:27 PM
== END 2017-01-14 12:04 | disposition home health service (06) | DRG 470 ==
LOC: HSDI 01-11 06:17 → N06A 01-11 17:34
PROVIDERS: ADMIT Orthopaedic Surgery; ATTEND Orthopaedic Surgery
PROC: 3E0T3CZ (ICD-10-PCS; 2017-01-11)
PROC: 0SRC0J9 Replacement of Right Knee Joint with Synthetic Substitute, Cemented, Open Approach (ICD-10-PCS; principal; 2017-01-11 10:09)
DX: M17.11 Unilateral primary osteoarthritis, right knee (principal); I48.91 Unspecified atrial fibrillation; I10 Essential (primary) hypertension; E78.5 Hyperlipidemia, unspecified; R29.6 Repeated falls; Z79.01 Long term (current) use of anticoagulants; Z86.011 Personal history of benign neoplasm of the brain; Z87.891 Personal history of nicotine dependence
CPT/HCPCS: 73560; 80048; 83735; 85027; 86850; 86900; 86901; 86902; 87641; 88305; 94150; C1776; J0131; J0690; J1100; J1580; J2250; J2270; J2405; J2710; J3010; J7120; L1830